=== PATIENT | male | born 1955 | race American Indian/Alaskan Native ===

== ENCOUNTER 2017-12-24 10:11 | Emergency (ER) | payer SELFPAY ==
--- NOTE | 2017-12-24 10:25 | Emergency Department Report ---
ED CPR HPI - General Stated Complaint: CARDIAC ARREST Time Seen by Provider: 12/24/17 10:16 - History of Present Illness Initial Comments: 62-year-old male presents to the hospital in cardiopulmonary arrest. 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 No bystander CPR reported. EMS arrived to the scene 9: 50 AM the patient was in V. fib. Patient received 2 epi, 1 bicarbonate, and 3 defibrillations prior to arrival and rhythm deteriorated between V. tach, V. fib , and asystole. No return of spontaneous circulation. Patient apparently was recently treated for influenza and pneumonia. Patient apparently had a cardiac arrest earlier this year and is known to be noncompliant with his medications. History obtained from EMS since patient is unresponsive. Patient intubated prior to arrival - Related Data Home Medications Medication Instructions Recorded Confirmed Last Taken No Known Home Medications [No 10/24/15 10/24/15 Unknown Reported Home Medications] Allergies Allergy/AdvReac Type Severity Reaction Status Date / Time No Known Allergies Allergy Unverified 10/24/15 19:57 ED Review of Systems ROS: Stated complaint: CARDIAC ARREST Other details as noted in HPI Comment: Unobtainable due to pts medical conditions ED Past Medical Hx - Surgical History Additional Surgical History: left arm surgery - Social History Smoking Status: Current Every Day Smoker Substance Use Type: Alcohol - Medications Home Medications: Home Medications Medication Instructions Recorded Confirmed Last Taken Type No Known Home Medications [No 10/24/15 10/24/15 Unknown History Reported Home Medications] ED Physical Exam - Other Other exam information: General: Unresponsive Head exam: Abrasion/small hematoma to forehead Eyes exam: Pupils fixed and I ENT: Moist mucous membrane, orally intubated Neck exam: Normal inspection Respiratory exam: No spontaneous respirations. Clear to auscultation bilaterally with bagging Cardiovascular: Pulseless Abdomen: Soft, nondistended Extremity: Full no deformity Back: Normal Inspection Neurologic: GCS equals 3 Psychiatric: Unresponsive Skin: Warm ED Course - Reevaluation(s) Reevaluation #1: 12/24/17 10:26 CPR continued upon patient arrival. Patient was asystole upon arrival. Accu- Chek in the 70s, after epi, and additional bicarbonate patient remained in asystole. Further the resuscitation efforts ceased. ED Medical Decision Making - Medical Decision Making Despite resuscitation efforts patient remained in asystole. Time of : 10: 12 am - Differential Diagnosis [place], PE, pneumonia, hypoxia Critical Care Time: No Critical care attestation.: If time is entered above; I have spent that time in minutes in the direct care of this critically ill patient, excluding procedure time. ED Disposition Clinical Impression: Cardiopulmonary arrest Disposition: DC-20 Is pt being admited?: No Does the pt Need Aspirin: No Condition: Critical Time of Disposition: 10:27
[2017-12-24] MEDS ORDERED: SODIUM BICARBONATE IV ONE (15:03)
[2017-12-24] MEDS ORDERED: ADRENALIN ONE (15:03)
== END 2017-12-24 12:00 ==
LOC: ED 10:11
DX: I46.9 Cardiac arrest, cause unspecified (principal); F17.200 Nicotine dependence, unspecified, uncomplicated
CPT/HCPCS: 82962; 92950; 99285; J0171